=== PATIENT | female | born 1980 | race Caucasian/White ===

== ENCOUNTER → 2017-04-03 09:24 | Day surgery (SDC) | payer OTHER ==
[~2017-04-03 09:24] MED LIST: Buffered Lidocaine 0.9% SYRIN* 5 ML/SYR SYRINGE INTRADERM ONE; Dexamethasone IV* 4 MG/ML 1 ML (4 MG) ONE; DiMENhydriNATE IV* 50 MG/ML VIAL IV PUSH PRN; Famotidine IV* 10 MG/ML 2 ML (20 mg) ONE; HYDROmorphone* 1 MG/ML 1 ML SYR IV PRN; HYDROmorphone* 1 MG/ML 1 ML SYR ONE; Levalbuterol 0.63MG/3ML NEB* UNIT OF USE INH PRN; Lidocaine 2% PF * 5 ML VIAL ONE; Midazolam* 1 MG/ML 2 ML VIAL (2 MG) ONE; Ondansetron INJ* 2 MG/ML VIAL IV PRN; Ondansetron INJ* 2 MG/ML VIAL ONE; PROCHLORPERAZINE INJ 5 MG/ML 2 ML VIAL IV PRN; Propofol* 10 MG/ML 20 ML BTL IV PUSH ONE; Succinylcholine* 20 MG/ML 10 ML VIAL ONE; fentaNYL* 50 MCG/ML 2 ML VIAL (100 MCG VIAL) IV PRN; fentaNYL* 50 MCG/ML 2 ML VIAL (100 MCG VIAL) ONE; oxyCODONE ORAL.SOLN* 5 MG/5 ML UDC ONE
[2017-04-03 15:13] VITALS: BP 109/82
--- NOTE | 2017-04-04 02:34 | OP ---
DATE OF OPERATION: 04/03/17 - [facility] DATE OF : 82 SURGEON: Julio Curtis MD [employer] COORDINATOR: None. ANESTHESIOLOGIST: Dr. Street ANESTHESIA: General. PRE-OP DIAGNOSES: Adenotonsillar hypertrophy, chronic tonsillitis, chronic adenoiditis. POST-OP DIAGNOSES: Adenotonsillar hypertrophy, chronic tonsillitis, chronic adenoiditis. OPERATIVE PROCEDURE: Tonsillectomy and adenoidectomy. ESTIMATED BLOOD LOSS: Negligible. SPECIMENS: Right and left tonsils to Pathology. Adenoids are vaporized. INDICATION: This is a 36-year-old woman who has had life long chronic problems with recurrent pharyngitis. The decision was made to proceed with tonsillectomy and adenoidectomy. DESCRIPTION OF PROCEDURE: She was brought to the operating room on 04/03/17. General anesthesia was induced and her oral endotracheal tube was placed. The patient was draped, the table was turned and a time-out was performed. A McIvor mouth gag was used to facilitate exposure to the oropharynx and suspended from the Spaulding stand. The right tonsil was grasped with a straight Allis forceps, retracted medially and dissected free of its fossa with a coblation device at a setting of 7 and 3. There was minimal bleeding. The left tonsil was removed in an identical fashion, again utilizing the coblation device with no bleeding. Once the tonsils were removed, the superior and inferior pole regions were prophylactically cauterized with the bipolar function of the device in a setting of 5. The overall settings on the device were then turned up to 9 and 5. The soft palate was retracted with a red rubber catheter. The adenoid bed was inspected. Redundant adenoid tissue was vaporized with the Coblator tip and bleeding was controlled with the coagulation function. Once the adenoidectomy was complete, the mouth gag was then let down for a period of a minute. It was opened again, there was no evidence of active bleeding. An orogastric tube was passed into the stomach and the stomach contents were evacuated. The patient was then returned to the care of the anesthesiologist, extubated and delivered to the PACU in stable condition. [id number] #: [id number] MTDD
== END | disposition home or self-care (01) ==
LOC: OR 09:24
PROVIDERS: ATTEND Otolaryngology
DX: J35.03 Chronic tonsillitis and adenoiditis (principal); J45.909 Unspecified asthma, uncomplicated; Z88.5 Allergy status to narcotic agent
CPT/HCPCS: 81025; 88304; A9270-GY; J0330; J1100; J1170; J2250; J2405; J2704; J3010